=== PATIENT | female | born 1990 | race Caucasian/White ===

== ENCOUNTER 2018-11-22 13:10 | Emergency (ER) | payer MEDICAID ==
[~2018-11-22] VITALS: Ht 167.6 cm; Wt 110.0 kg
[2018-11-22 13:57] VITALS: BP 143/98
== END 2018-11-22 14:54 | disposition home or self-care (01) ==
LOC: ER 13:10
DX: S93.491A Sprain of other ligament of right ankle, initial encounter (principal); X50.1XXA Overexertion from prolonged static or awkward postures, initial encounter; Y93.89 Activity, other specified; Y92.091 Bathroom in other non-institutional residence as the place of occurrence of the external cause; Y99.9 Unspecified external cause status
CPT/HCPCS: 29540; 99283

== ENCOUNTER 2022-04-01 15:32 | Emergency (ER) | payer MEDICAID ==
[~2022-04-01] VITALS: Ht 167.6 cm; Wt 102.3 kg
[2022-04-01 15:43] VITALS: BP 165/106
[2022-04-01] MEDS ORDERED: orphenadrine citrate 60mg/2ml inj. IM ONE (16:30)
[2022-04-01] MEDS ORDERED: ketorolac tromethamine 15mg/ml inj. IM ONE (16:30)
[2022-04-01] MEDS ORDERED: IBUP-1984 PO (16:49)
[2022-04-01] MEDS ORDERED: CYCL-1 PO (16:49)
== END 2022-04-01 17:04 | disposition home or self-care (01) ==
LOC: ER 15:33
DX: M25.512 Pain in left shoulder (principal); Z91.040 Latex allergy status; Z88.5 Allergy status to narcotic agent; Z79.899 Other long term (current) drug therapy; Z79.2 Long term (current) use of antibiotics; X58.XXXA Exposure to other specified factors, initial encounter; Y93.89 Activity, other specified; Y92.89 Other specified places as the place of occurrence of the external cause; Y99.8 Other external cause status
CPT/HCPCS: 73030; 96372; 99284; J1885; J2360; A4565

== ENCOUNTER 2025-06-21 15:19 | Emergency (ER) | payer BC, MEDICAID ==
[~2025-06-21] VITALS: Ht 167.6 cm; Wt 116.7 kg
[~2025-06-21 15:19] MED LIST: CYCL-1 PO
[2025-06-21 15:30] VITALS: BP 177/124; PULSE 78; O2SAT 99
--- NOTE | 2025-06-21 15:41 | Physician Documentation ---
History of Present Illness ~ Chief Complaint: Back Pain Stated Complaint: BACK PAIN Time Seen by MD: 15:42 Primary Medical Doctor: bill JERICA Is a 35-year-old female that presents to the emergency department for evaluation of back pain that has been progressively worse over the course of the last 2 weeks. Patient reports that she fell backwards while holding a laundry basket secondary to mechanical ground level fall approximately 2 weeks ago. Patient reports that she landed on her back on a hardwood floor since that time her pain has progressed. 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 She reports that the pain has gotten worse throughout the day. She reports taking Tylenol and ibuprofen at approximately 6:30 a.m. this morning with a little bit of relief but not complete resolution. Reports that she has previously taken Flexeril for her back pain as she has a history of back pain and herniated discs and that has helped her in the past. She reports that she has been out of her Flexeril for approximately a week. Reports that she also takes losartan for hypertension in his currently out of her losartan and does not have the money to picker / packer her prescription until she gets paid this week. No other symptoms or health history reported at this time. Medication Reconciliation Allergies: Coded Allergies: latex (Unverified Allergy, Mild, 06/21/25) prednisone (Unverified Allergy, Unknown, 06/21/25) Uncoded Allergies: SOY BEANS (Allergy, Severe, 04/01/22) Scheduled Cyclobenzaprine* (Cyclobenzaprine*), 1 TAB PO Q8H Scheduled PRN Hydrocodone Bit/Acetaminophen 5/325 MG ([place] 5/325 MG), 1 TAB PO Q12H PRN for pain Past Medical History Past Medical History: No Pertinent History Past Surgical History: no surgical history Alcohol Use: Sober Drug Use: none Lives with: Family Lives In: Home Review of Systems ROS VITALS: Reviewed and as above. GENERAL: Alert, no apparent distress. HEENT: Normocephalic, atraumatic, PERRL, EOMI, dry mucosa, no erythema RESPIRATORY: Lungs clear, normal breath sounds, no respiratory distress. CHEST: No accessory muscle use, no retractions CV: Regular rate, rhythm, no edema, no murmur, No: JVD GI: Soft, non-tender, bowels sounds present, no rebound, guarding, or rigidity BACK: No CVA tenderness, or swelling MUSCULOSKELETAL No deformities, no edema, palpation to lumbosacral region positive straight leg raise to the left leg. SKIN: Warm and dry, no rash NEURO: Oriented x4, No motor or sensory deficit PSYCH: Normal mood and affect, no agitation Physical Exam Physical Exam Vital Signs: Temperature: 97.2, Source: Temporal, Heart Rate: 78, Respiratory Rate: 16, BP: 177/124, Pulse Oximetry: 99, Weight: 116.700 Oxygen Flow Rate: 0 Progress Results/Orders Results/Orders Orders - BEBETO KHALIL [employer]ESSION[employer] Sacrum & Coccyx (06/21/25 16:00) Thoracic Spine Complete (06/21/25 16:00) Lumbar Spine Limited (06/21/25 16:00) Completed Orders - BEBETO KHALIL [employer] Sacrum & Coccyx (06/21/25 16:00) Thoracic Spine Complete (06/21/25 16:00) Lumbar Spine Limited (06/21/25 16:00) Ketorolac Trometh 15mg/Ml Vial (Toradol (06/21/25 16:50) Cyclobenzaprine Tablet (Flexeril Tablet) (06/21/25 16:50) Methylprednisolone Sod Succ (Solumedrol (06/21/25 17:50) Medications Received in ER Medications (Trade) Dose Ordered Sig/Suma Route PRN Reason Start Time Stop Time Status Last Admin Dose Admin (Toradol injection) 30 mg ONCE ONCE IM 06/21/25 16:50 06/21/25 16:51 DC 06/21/25 17:20 15 MG (Flexeril tablet) 10 mg ONCE ONCE PO 06/21/25 16:50 06/21/25 16:51 DC 06/21/25 17:20 10 MG (SoluMEDROL 125mg inj) 125 mg ONCE ONCE IM 06/21/25 17:50 06/21/25 17:52 DC 06/21/25 18:31 125 MG Vital Signs 06/21/25 06/21/25 15:30 17:20 Temp 97.2 Pulse 78 Resp 16 16 B/P (MAP) 177/124 Pulse Ox 99 O2 Flow Rate 0 Medical Decision Making Findings This patient presents with back pain most consistent with lumbosacral strain/sprain. Differential diagnoses includes lumbago versus musculoskeletal spasm / strain versus sciatica. Less likely sciatica as straight leg raise test was negative. No back pain red flags on history or physical. Presentation not consistent with malignancy (lack of history of malignancy, lack of B symptoms), fracture (no trauma, no bony tenderness to palpation), cauda equina (no bowel or urinary incontinence/retention, no saddle anesthesia, no distal weakness), AAA, viscus perforation, osteomyelitis or epidural abscess (no IVDU, vertebral tenderness), renal colic, pyelonephritis (afebrile, no CVAT, no urinary symptoms). X-rays currently negative. Patient has been given Toradol Solu- Medrol Flexeril with some improvement. We will follow up with her primary care provider. Return to the emergency department with any worsening or recurrent symptoms or any additional concerning symptoms that we discussed here today i.e. numbness tingling in her bilateral lower extremities saddle anesthesia bowel or bladder incontinence fever chills or any other concerning symptoms. Differential Dx:Considerations: Include: AAA, Aortic dissection, , Appendicitis, Bowel obstruction, Cholelithiasis, Cholangitis, DJD, Ectopic , Fracture, Hepatitis, HNP, Musculoskeletal pain, Pancreatitis, Pyelonephritis, Strain, Urinary obstruction, Urolithiasis, Ovarian torsion, Other Departure Disposition: 01 HOME / SELF CARE / HOMELESS Impression: Primary Impression: Back problem Additional Impressions: Strain of lumbar region Sciatica Lumbosacral strain Low back pain Condition: Stable Discharge Instructions: Lumbosacral Strain, Acute Back Pain, Adult, Sciatica Additional Instructions: This patient presents with back pain most consistent with lumbosacral strain/sprain. Differential diagnoses includes lumbago versus musculoskeletal spasm / strain versus sciatica. Less likely sciatica as straight leg raise test was negative. No back pain red flags on history or physical. Presentation not consistent with malignancy (lack of history of malignancy, lack of B symptoms), fracture (no trauma, no bony tenderness to palpation), cauda equina (no bowel or urinary incontinence/retention, no saddle anesthesia, no distal weakness), AAA, viscus perforation, osteomyelitis or epidural abscess (no IVDU, vertebral tenderness), renal colic, pyelonephritis (afebrile, no CVAT, no urinary symptoms). X-rays currently negative. Patient has been given Toradol Solu- Medrol Flexeril with some improvement. We will follow up with her primary care provider. Return to the emergency department with any worsening or recurrent symptoms or any additional concerning symptoms that we discussed here today i.e. numbness tingling in her bilateral lower extremities saddle anesthesia bowel or bladder incontinence fever chills or any other concerning symptoms. A short course of pain medication and will be prescribed here today. Please take your medication as prescribed. Follow up with the primary care provider. Please return to the emergency department with any worsening or recurrent symptoms or any other concerning symptoms that we discussed here today. Departure Forms: Excuse form Work or School Excused From: Work Excuse beginning now through the following date: Jun 25, 2025 Referrals: NO PRIMARY CARE PROVIDER (PCP) Prescriptions Hydrocodone Bit/Acetaminophen 5/325 MG ([place] 5/325 MG) 5 Mg/325 Mg Tablet 1 TAB PO Q12H PRN for pain for 3 Days, #6 TAB Prov: BEBETO KHALIL 06/21/25 Education Educated: Patient Educated regarding: diagnosis, treatment, need for follow up Signature Scribe Signature: A Attestation: Scribed for Bebeto Khalil by JUDITH Cerrato . 06/21/25 18:52 BEBETO KHALIL Jun 21, 2025 15:41
--- NOTE | 2025-06-21 16:10 | RADIOLOGY REPORT ---
CLINICAL HISTORY: BACK PAIN TECHNIQUE: 2 views of the thoracic spine were obtained. COMPARISON: None FINDINGS: The alignment of the thoracic spine is normal. The vertebral body heights and intervertebral disc spaces are maintained. There are scattered endplate osteophytes. No acute fracture or dislocation is seen. IMPRESSION: NO ACUTE RADIOGRAPHIC ABNORMALITY OF THE THORACIC SPINE.
--- NOTE | 2025-06-21 16:10 | RADIOLOGY REPORT ---
EXAM: DI SACRUM COCCYX REASON FOR EXAM: BACK PAIN TECHNIQUE: Frontal and lateral image of the sacrum/coccyx were acquired. COMPARISON: None FINDINGS: No acute fracture or dislocation is seen. There are no significant degenerative changes. IMPRESSION: No acute fracture or dislocation. End of Report
--- NOTE | 2025-06-21 16:14 | RADIOLOGY REPORT ---
INDICATION: BACK PAIN TECHNIQUE: 4 views of the lumbar spine were obtained. COMPARISON: None FINDINGS: There are no acute fractures or subluxations. IMPRESSION: No acute fracture or subluxation.
[2025-06-21 17:20] VITALS: RESP 16
[2025-06-21] MEDS: ketorolac trometh 15mg/ml vial 15 MG/ML ML IM ONE (17:20)
[2025-06-21] MEDS ORDERED: HYDR-3965 PO (18:51)
[2025-06-21 19:11] VITALS: TEMP 97.2
== END 2025-06-21 19:13 | disposition home or self-care (01) ==
LOC: ER 15:20
DX: S39.012A Strain of muscle, fascia and tendon of lower back, initial encounter (principal); M54.40 Lumbago with sciatica, unspecified side; I10 Essential (primary) hypertension; Z91.040 Latex allergy status; Z88.8 Allergy status to other drugs, medicaments and biological substances; Z79.899 Other long term (current) drug therapy; W18.39XA Other fall on same level, initial encounter; Y93.89 Activity, other specified; Y92.89 Other specified places as the place of occurrence of the external cause; Y99.8 Other external cause status
CPT/HCPCS: 72074; 72100; 72220; 96372; 99284; J1885; J2919

== ENCOUNTER 2025-09-29 15:25 | Emergency (ER) | payer BC ==
[~2025-09-29] VITALS: Ht 167.6 cm; Wt 115.4 kg
[2025-09-29 15:27] VITALS: BP 156/93; PULSE 87; RESP 16; O2SAT 99
[2025-09-29 15:59] LABS: INFLUENZA TYPE A ANTIGEN RAPID NEGATIVE (Negative); INFLUENZA TYPE B ANTIGEN RAPID NEGATIVE (Negative)
[2025-09-29] MEDS ORDERED: ALBU8HFA INH (16:29)
[2025-09-29] MEDS ORDERED: AZIT-164 PO (16:29)
--- NOTE | 2025-09-29 16:29 | Physician Documentation ---
History of Present Illness ~ Chief Complaint: Cold, cough & congestion Stated Complaint: COLD SYMPTOMS Time Seen by MD: 15:48 OK to notify your PCP?: Yes Primary Medical Doctor: [facility] Source: patient Mode of Arrival: POV Exam Limitations: no limitations HPI Reports having a cough with wheezing for 1 week. She does have a history of asthma. She does endorse having some lightheadedness and nausea. She denies having any fevers. She does not have any inhalers currently. She reports that she only has flare-ups whenever she is sick. Medication Reconciliation Allergies: Coded Allergies: latex (Unverified Allergy, Mild, 06/21/25) prednisone (Unverified Allergy, Unknown, 06/21/25) Uncoded Allergies: SOY BEANS (Allergy, Severe, 04/01/22) Scheduled Azithromycin (Zithromax), 1 TAB PO DAILY Cyclobenzaprine* (Cyclobenzaprine*), 1 TAB PO Q8H Scheduled PRN albuterol inhaler (Pro-Air Inhaler), 2 PUFFS INH Q4HPRN PRN for wheezing Past Medical History Past Medical History: No Pertinent History Past Surgical History: no surgical history Alcohol Use: Sober Drug Use: none Lives with: Family Lives In: Home Review of Systems All Other Systems at this time: Reviewed and Negative Physical Exam Vital Signs: RN Vital Signs have been reviewed: Yes, Temperature: 98.2, Source: Oral, Heart Rate: 87, Respiratory Rate: 16, BP: 156/93, Pulse Oximetry: 99, Weight: 115.400 Oxygen Flow Rate: 0 Pulse Oximetry Reflects: adequate oxygenation Physical Exam General: Alert, no apparent distress. HEENT: PERRL, EOMI, no injection, moist mucous membranes. TM clear. Posterior pharynx erythema, no exudates. Neck: Full range of motion. No cervical lymphadenopathy Respiratory: no respiratory distress. Diffuse expiratory wheezes, no crackles heard. Diminished breath sounds bilaterally. Chest: No accessory muscle use. Cardiovascular: Regular rate and rhythm, no murmurs. Gastrointestinal: Soft, nontender, nondistended. Bowels sounds present. Extremities: Normal range of motion, no deformity. Neurologic: Oriented x4. Psychiatric: Normal mood and affect. Skin: Normal color, warm and dry. No edema, no ecchymosis. Progress Results/Orders Reviewed/noted all lab results: Yes Results/Orders Vital Signs 09/29/25 09/29/25 15:27 16:33 Temp 98.2 98.2 Pulse 87 Resp 16 B/P (MAP) 156/93 Pulse Ox 99 O2 Flow Rate 0 Laboratory Tests Test 09/29/25 15:32 Influenza Type A Antigen Negative Influenza Type B Antigen Negative SARS-CoV-2 Antigen (Rapid) Negative Medical Decision Making Additional information obtaine: family Findings Physical exam shows diffuse wheezes throughout but no crackles. COVID and flu tests in the department were negative. We discussed this is likely caused by different viral illness. Place her on a azithromycin as well as an albuterol inhaler. Differential Dx:Considerations: Include: Otitis media, Pneumonia, Pnuemonitis, Sinusitis, URI Departure Disposition: 01 HOME / SELF CARE / HOMELESS Impression: Primary Impression: Acute bronchitis Condition: Stable Discharge Instructions: Acute Bronchitis, Adult Additional Instructions: Take all antibiotics as prescribed and finish the course. Use your inhaler as needed. However, you can take acetaminophen or ibuprofen to help with fevers and pain. Stay well hydrated and rested. Return to the emergency department if your fevers and chills continue to worsen after 5 days, if you develop worsening cough with thick sputum, are unable to stay hydrated, or have any new or concerning concerning symptoms. Contact your primary care provider in the next 2-3 days for re-evaluation and to make sure your symptoms are improving. Referrals: NO PRIMARY CARE PROVIDER (PCP) Prescriptions Azithromycin (Zithromax) 250 Mg Tablet 1 TAB PO DAILY, #6 TAB Day 1: Take 2 tablets once by mouth. Day 2-5: Take 1 tablet once by mouth daily. Prov: TEGAN THAO 09/29/25 albuterol inhaler (Pro-Air Inhaler) 8.5 Gm Inhaler 2 PUFFS INH Q4HPRN PRN for wheezing for 30 Days, #18 GM Prov: TEGAN THAO 09/29/25 Education Educated: Patient Educated regarding: diagnosis, treatment, prognosis, need for follow up Additional Comment Medical Screen Exam This patient recieved a medical screening examination. After reviewing the individual's medical complaints with presenting symptoms and performing an appropriate physical examination, it was determined that no immediate life- threatening emergency medical condition is present. This individual is also not a women having contractions. Signature Scribe Signature: . Attestation: Scribed for Tegan Thao Sales Representative Graphic Art by Tegna Lim NP . 09/29/25 17:37 Parts of this note were created using [email or web address] voice recognition software program. While efforts were made to correct any mistakes made by this voice recognition software program, nonsensical phrases may remain in this note. In addition, there may be errors and syntax, grammar, content and spelling. TEGAN THAO PIANO CASE MAKER Sep 29, 2025 16:29
[2025-09-29 16:33] VITALS: TEMP 98.2
== END 2025-09-29 16:34 | disposition home or self-care (01) ==
LOC: ER 15:25
DX: J20.9 Acute bronchitis, unspecified (principal); Z91.040 Latex allergy status; Z88.8 Allergy status to other drugs, medicaments and biological substances; Z79.899 Other long term (current) drug therapy; Z20.822 Contact with and (suspected) exposure to COVID-19
CPT/HCPCS: 36415; 87804; 87811; 99283